=== PATIENT | male | born 1960 | race Caucasian/White ===

== ENCOUNTER 2021-04-12 09:30 | Day surgery (SDC) | payer BC, SELFPAY ==
[~2021-04-12] VITALS: Ht 172.7 cm; Wt 88.5 kg
[~2021-04-12 09:30] MED LIST: CEFAZOLIN SOD 1 GM in D5W 50 ML IV ONE
[2021-04-12] MEDS ORDERED: PHENYLEPHRINE HCL 10 MG/ML VIAL (NEOSYNEPHRINE) IV ONE (14:00)
[2021-04-12] MEDS ORDERED: fentaNYL CITRATE 250 MCG/5 ML AMP IV ONE (14:00)
[2021-04-12] MEDS ORDERED: ROCURONIUM BROMIDE 10 MG/ML (ZEMURON) IV ONE (14:00)
[2021-04-12] MEDS ORDERED: LR 1,000 ML IV.SOLN IV ONE (14:00)
[2021-04-12] MEDS ORDERED: BUPIVACAINE /EPINEPHRINE/PF 0.25% 30 ML VIAL INJ ONE (14:00)
[2021-04-12] MEDS ORDERED: GLYCOPYRROLATE 0.2 MG/ML VIAL IJ ONE (14:00)
[2021-04-12] MEDS ORDERED: MIDAZOLAM HCL 5 MG/5 ML VIAL IVP ONE (14:00)
[2021-04-12] MEDS ORDERED: SUCCINYLCHOLINE CHLORIDE 20 MG/ML(QUELICIN) IVP ONE (14:00)
[2021-04-12] MEDS ORDERED: NS IRRIG SOLN 1000 ML IR ONE (14:00)
[2021-04-12] MEDS ORDERED: SEVOFLURANE 15 MIN GAS INH ONE (14:00)
[2021-04-12] MEDS ORDERED: KETOROLAC TROMETHAMINE 30 MG VIAL IVP PRN (15:00)
[2021-04-12] MEDS ORDERED: HYDROmorphone 1 MG/ML INJ. CARTRIDGE IVP PRN (15:00)
[2021-04-12] MEDS ORDERED: ONDANSETRON HCL 4 MG/2 ML VIAL IVP PRN (15:00)
[2021-04-12] MEDS ORDERED: IBUPROFEN 600 MG TABLET PO ONE (15:00)
[2021-04-12] MEDS ORDERED: MEPERIDINE HCL/PF 25 MG/ML DISP.SYRIN IVP PRN (15:30)
[2021-04-12] MEDS ORDERED: D5/0.45 NS 1,000 ML IV SCH (15:30)
[2021-04-12] MEDS ORDERED: HYDROcodone/ACETAMIN 5-325 MG TAB (NORCO/ VICODIN) PO PRN ×2 (15:30)
[2021-04-12] MEDS: HYDROmorphone 1 MG/ML INJ. CARTRIDGE ONE ×2 (15:45→15:55)
[2021-04-12 19:43] VITALS: BP_SYST 126
== END 2021-04-12 18:40 | disposition home or self-care (01) ==
LOC: SDS 09:30 → SMU 09:31 → SDS 18:40
PROVIDERS: ATTEND Colon & Rectal Surgery
DX: K40.30 Unilateral inguinal hernia, with obstruction, without gangrene, not specified as recurrent (principal); I10 Essential (primary) hypertension; E78.5 Hyperlipidemia, unspecified; Z79.899 Other long term (current) drug therapy; Z20.822 Contact with and (suspected) exposure to COVID-19
CPT/HCPCS: 36415; 49507; 87426; C1781; J0690; J1170; J7060; U0003; J0330; J2250; J2370; J3010; J3490; J7120